=== PATIENT | female | born 1940 | race Caucasian/White ===

== ENCOUNTER → 2017-02-03 | Outpatient (CLI) | payer MEDICARE, BC | LOC: MC.RAD 15:59 | DX: Z12.31 Encounter for screening mammogram for malignant neoplasm of breast (principal) ==

== ENCOUNTER → 2017-09-16 | Outpatient (CLI) | payer MEDICARE, BC | LOC: COL.RAD 07:04 | DX: K80.20 Calculus of gallbladder without cholecystitis without obstruction (principal); K76.89 Other specified diseases of liver ==

== ENCOUNTER → 2018-03-05 | Outpatient (CLI) | payer MEDICARE, BC | LOC: MC.RAD 08:40 | DX: Z12.31 Encounter for screening mammogram for malignant neoplasm of breast (principal) ==

== ENCOUNTER → 2019-03-30 | Outpatient (CLI) | payer MEDICARE, BC | LOC: MC.RAD 11:13 | DX: Z12.31 Encounter for screening mammogram for malignant neoplasm of breast (principal) ==

== ENCOUNTER 2019-12-07 13:59 | Inpatient (IN) | payer MEDICARE, BC ==
[~2019-12-07] VITALS: Ht 154.9 cm; Wt 75.5 kg
[2019-12-07] MEDS ORDERED: ROXICODONE 55 MG/TAB PO (15:18)
[2019-12-07] MEDS ORDERED: ULTRAM 50MG TAB50 MG (15:18)
[2019-12-07] MEDS ORDERED: NATURAL IRON65 MG (15:19)
[2019-12-07] MEDS ORDERED: SYNTHROID 0.0.025 MG PO (15:19)
[2019-12-07] MEDS ORDERED: PRINZIDE 12.5 M1 TAB PO (15:19)
[2019-12-07] MEDS ORDERED: TYLENOL 500MG500 MG PO (15:20)
[2019-12-07] MEDS ORDERED: ASPIRIN 32325 MG/TAB PO (15:20)
[2019-12-07 15:24] LABS: BASO % 0.1 % (0.0-2.0); EOS % 0.3 % (0-4.0); GRAN # 12.9 (1.4-6.5); LYMPH # 1.4 (1.2-3.4); LYMPH % 8.8 % (20.0-51.0); MEAN CELL VOLUME 98 fl (80.0-100.0); MEAN CORPUSCULAR HGB CONC 34 g/dl (33.0-37.0); MEAN PLATELET VOLUME 9.5 fl (7.4-10.4); MONO # 1.2 (0.1-0.6); MONO % 7.5 % (1.7-9.3); PLATELET COUNT 285 K/mm3 (130-400); RED BLOOD COUNT 1.87 M/mm3 (4.10-5.30); REDCELL DISTRIBUTION WIDTH-CV 13.9 % (11.5-14.5)
[2019-12-07 15:28] LABS: INR 1.1 (0.8-3.0)
[2019-12-07 15:29] LABS: HEMATOCRIT 18.4 % (37.0-47.0); HEMOGLOBIN 6.3 g/dl (12.5-16.0); MEAN CORPUSCULAR HEMOGLOBIN 34 pg (27.0-31.0)
[2019-12-07 15:30] LABS: PARTIAL THROMBOPLASTIN TIME 24.9 SECONDS (26.0-37.0)
[2019-12-07 15:38] LABS: ALANINE AMINOTRANSFERASE 17 U/L (4-34); ALBUMIN 3.2 gm/dL (3.5-5.0); ALKALINE PHOSPHATASE 54 U/L (50-136); ANION GAP 8 mmol/L (7-16); AST,SGOT 26 U/L (15-37); BILIRUBIN,TOTAL 1.3 mg/dL (0.0-1.0); BLOOD UREA NITROGEN 37 mg/dL (7-17); C-REACTIVE PROTEIN 6.9 mg/dL (0.0-0.9); CALCIUM 8.1 mg/dL (8.4-10.2); CARBON DIOXIDE 24 mmol/L (22-30); CHLORIDE 95 mmol/L (98-107); CREATININE, serum 0.67 (0.52-1.25); GLUCOSE 120 mg/dL (74-106); SODIUM 127 mmol/L (137-145); TOTAL PROTEIN 5.8 gm/dL (6.4-8.2)
[2019-12-07 15:44] LABS: COLLECTION METHOD CLEAN CATCH
[2019-12-07 15:48] LABS: TROPONIN-I < 0.012 ng/mL (0.000-0.035)
[2019-12-07 16:09] LABS: PH 5 (5-8); SQUAMOUS EPITHELIAL 0-2 /hpf; URINE APPEARANCE Clear; URINE BACTERIA None Seen /hpf; URINE BILIRUBIN Negative (NEGATIVE); URINE BLOOD Negative (NEGATIVE); URINE COLOR Yellow; URINE GLUCOSE Negative (NEGATIVE); URINE KETONE Trace (NEGATIVE); URINE LEUKOCYTE ESTERASE 1+ (NEGATIVE); URINE NITRATE Negative (NEGATIVE); URINE PROTEIN(semi-quant) Negative (NEGATIVE); URINE RBC 0-2 /hpf; URINE UROBILINOGEN Negative (NEGATIVE)
[2019-12-07] MEDS ORDERED: NAPROSYN500 MG PO (16:09)
[2019-12-07 16:45] LABS: IRON,SERUM 90 ug/dL (35-150)
[2019-12-07 16:54] LABS: TOTAL IRON BINDING CAPACITY 239 ug/dL (265-497)
[2019-12-07 17:40] VITALS: BP 102/39; PULSE 106; TEMP 98.2
[2019-12-07 18:27] VITALS: BP 116/33; PULSE 100; TEMP 98.7
[2019-12-07 18:46] VITALS: BP 112/30; PULSE 98; TEMP 98.1
[2019-12-07 19:06] VITALS: BP 121/48; PULSE 99; TEMP 98.6
[2019-12-07 21:21] VITALS: BP 129/38; PULSE 102
[2019-12-07 21:53] LABS: HEMATOCRIT 20.2 % (37.0-47.0); HEMOGLOBIN 6.8 g/dl (12.5-16.0)
[2019-12-07 23:20] VITALS: BP 126/29; PULSE 91; TEMP 98.1
[2019-12-08] VITALS (19 sets, daily range): BP systolic 97–130; BP diastolic 25–49; PULSE 80–99; TEMP 97.7–98.7
[2019-12-08 03:40] LABS: BASO % 0.3 % (0.0-2.0); EOS # 0.3 (0.0-0.7); EOS % 2.4 % (0-4.0); GRAN # 8.4 (1.4-6.5); GRAN % 70.8 % (42.2-75.2); LYMPH # 1.5 (1.2-3.4); MEAN CORPUSCULAR HGB CONC 34 g/dl (33.0-37.0); MEAN PLATELET VOLUME 9.3 fl (7.4-10.4); MONO # 1.5 (0.1-0.6); MONO % 12.2 % (1.7-9.3); PLATELET COUNT 233 K/mm3 (130-400); RED BLOOD COUNT 2.58 M/mm3 (4.10-5.30); REDCELL DISTRIBUTION WIDTH-CV 17.7 % (11.5-14.5)
[2019-12-08 03:41] LABS: HEMATOCRIT 23.5 % (37.0-47.0); HEMOGLOBIN 7.9 g/dl (12.5-16.0); MEAN CELL VOLUME 91 fl (80.0-100.0); MEAN CORPUSCULAR HEMOGLOBIN 31 pg (27.0-31.0)
[2019-12-08 03:49] LABS: CREATININE, serum 0.52 (0.52-1.25); POTASSIUM 3.8 mmol/L (3.4-5.0)
[2019-12-08 17:33] LABS: FOLATE (FOLIC ACID) 14.4 ng/mL (7.0-31.4)
[2019-12-09] VITALS: BP 119/49; PULSE 93; TEMP 98.1
[2019-12-09 04:11] VITALS: BP 116/50; PULSE 93; TEMP 98.3
[2019-12-09 07:26] LABS: BASO % 0.3 % (0.0-2.0); EOS # 0.4 (0.0-0.7); EOS % 2.7 % (0-4.0); GRAN # 9.5 (1.4-6.5); GRAN % 72.3 % (42.2-75.2); LYMPH # 1.7 (1.2-3.4); LYMPH % 13.1 % (20.0-51.0); MEAN CELL VOLUME 93 fl (80.0-100.0); MEAN CORPUSCULAR HGB CONC 33 g/dl (33.0-37.0); MEAN PLATELET VOLUME 9.3 fl (7.4-10.4); MONO # 1.4 (0.1-0.6); MONO % 10.2 % (1.7-9.3); PLATELET COUNT 303 K/mm3 (130-400); RED BLOOD COUNT 2.75 M/mm3 (4.10-5.30); REDCELL DISTRIBUTION WIDTH-CV 19.1 % (11.5-14.5)
[2019-12-09 07:28] LABS: HEMATOCRIT 25.6 % (37.0-47.0); HEMOGLOBIN 8.5 g/dl (12.5-16.0); MEAN CORPUSCULAR HEMOGLOBIN 31 pg (27.0-31.0)
[2019-12-09 08:02] VITALS: BP 130/47; PULSE 100; TEMP 97.9
[2019-12-09] MEDS ORDERED: NATURAL IRON65 MG PO (08:32)
[2019-12-09] MEDS ORDERED: PROTONIX 40MG T40 MG PO (08:34)
== END 2019-12-09 10:30 | disposition home or self-care (01) | DRG 378 ==
LOC: COL.ER 13:59 → SURG 16:02
PROVIDERS: Emergency Medicine; Internal Medicine; Internal Medicine Gastroenterology; Physician Assistant; ADMIT Hospitalist
PROC: 0DB68ZX Excision of Stomach, Via Natural or Artificial Opening Endoscopic, Diagnostic (ICD-10-PCS; principal; 2019-12-08 07:30)
DX: K25.4 Chronic or unspecified gastric ulcer with hemorrhage (principal); D62 Acute posthemorrhagic anemia; E87.1 Hypo-osmolality and hyponatremia; E03.9 Hypothyroidism, unspecified; I10 Essential (primary) hypertension; D72.829 Elevated white blood cell count, unspecified; E78.5 Hyperlipidemia, unspecified; K59.00 Constipation, unspecified; Z96.652 Presence of left artificial knee joint
CPT/HCPCS: 99222-AI; 99232-AI; 99239; C9113; J0290; J2704; J7030; P9016

== ENCOUNTER → 2020-01-06 | Outpatient (CLI) | payer MEDICARE, BC ==
[~2020-01-06] MED LIST: ASPIRIN 32325 MG/TAB PO; NAPROSYN500 MG PO; NATURAL IRON65 MG; NATURAL IRON65 MG PO; PRINZIDE 12.5 M1 TAB PO; PROTONIX 40MG T40 MG PO; ROXICODONE 55 MG/TAB PO; SYNTHROID 0.0.025 MG PO; TYLENOL 500MG500 MG PO; ULTRAM 50MG TAB50 MG
== END ==
LOC: COL.RAD 13:52
DX: R06.00 Dyspnea, unspecified (principal)
CPT/HCPCS: Q9967

== ENCOUNTER → 2020-02-01 | Outpatient (CLI) | payer MEDICARE, BC | LOC: COL.VAS 12:04 | DX: R06.02 Shortness of breath (principal) ==

== ENCOUNTER → 2020-04-03 | Outpatient (CLI) | payer MEDICARE, BC | LOC: MC.RAD 14:15 | DX: Z12.31 Encounter for screening mammogram for malignant neoplasm of breast (principal) ==

== ENCOUNTER → 2021-04-16 | Outpatient (CLI) | payer MEDICARE, BC | LOC: COL.RAD 08:12 | DX: E78.5 Hyperlipidemia, unspecified (principal); K80.20 Calculus of gallbladder without cholecystitis without obstruction; K57.30 Diverticulosis of large intestine without perforation or abscess without bleeding; K44.9 Diaphragmatic hernia without obstruction or gangrene; K31.89 Other diseases of stomach and duodenum; K83.5 Biliary cyst | CPT/HCPCS: Q9967 ==

== ENCOUNTER → 2021-04-30 | Outpatient (CLI) | payer MEDICARE, BC | LOC: COL.RAD 08:15 | DX: K76.89 Other specified diseases of liver (principal); K80.20 Calculus of gallbladder without cholecystitis without obstruction ==

== ENCOUNTER → 2021-05-31 | Outpatient (CLI) | payer MEDICARE, BC | LOC: MC.RAD 11:26 | DX: Z12.31 Encounter for screening mammogram for malignant neoplasm of breast (principal) ==

== ENCOUNTER 2022-03-07 15:51 | Emergency (ER) | payer MEDICARE, BC ==
[~2022-03-07] VITALS: Ht 157.5 cm; Wt 65.0 kg
[2022-03-08 03:03] VITALS: TEMP 98.2
[2022-03-08 05:14] LABS: HEMOGLOBIN 11.2 g/dl (12.5-16.0); MEAN CELL VOLUME 97 fl (80.0-100.0); MEAN CORPUSCULAR HEMOGLOBIN 33 pg (27-31); MEAN CORPUSCULAR HGB CONC 34 g/dl (33.0-37.0); PLATELET COUNT 227 K/mm3 (130-400); RED BLOOD COUNT 3.39 M/mm3 (4.10-5.30); REDCELL DISTRIBUTION WIDTH-CV 13.2 % (11.5-14.5)
[2022-03-08 05:17] LABS: HEMATOCRIT 32.9 % (37.0-47.0)
[2022-03-08 05:32] LABS: ALBUMIN 3.3 gm/dL (3.4-4.8); BILIRUBIN,TOTAL 1.2 mg/dL (0.2-1.2); CALCIUM 8.7 mg/dL (8.4-10.2); CREATININE, serum 0.63 mg/dL (0.57-1.11); POTASSIUM 3.8 mmol/L (3.5-4.5)
--- NOTE | 2022-03-08 09:44 | NUR ---
SW met with patient to talk about possible placement. Prior to meeting with patient, SW contacted the local nursing homes for availability. [facility] does not have a LTC bed or a SNF bed open at this time. [facility] does not have a LTC bed but does have a SNF bed. If the patient was to be admitted from the ER, she would be private pay at $296 a day and would need to pay $8900 up front for the first 30 days. Phone call made to [facility]. They would not be able to accept this patient today due to staffing and already having 3 slated admissions. The earliest they would be able to accept would be early next week as they do not do weekend admissions and again the patient would be private pay if sent home and surgery was done as an out patient. Patient lives at home alone here in [place]. She is independent will all of her ADL's/IADL's and will utilize a cane PRN when she feels "unsteady". She has no home oxygen needs. PCP is Dr. Gutiérrez and she utilizes [facility] for prescriptions. Patient states that she does have a DPO[facility]-HC established listing her two daughters; Bisi and Aletha. Per ortho recommendations the patient is non weight bearing. PT/OT worked with patient in the ER and recommends rehab. SW spoke with patient and her daughter Bisi and both feel like the patient would not be safe in the home setting. Patients RN notified. Request made for hospitalist team to re-eval admission for the patient.
[2022-03-08] MEDS ORDERED: TYLENOL 325MG325 MG PO (13:54)
[2022-03-08] MEDS ORDERED: PRINZIDE 12.5 M1 TAB PO (13:59)
--- NOTE | 2022-03-08 14:28 | NUR ---
This SW and meet with the patient at bedside to discuss POC. Patient on the phone with her daughter Bisi at this time. Patient is agreeable to going to [facility] at this time as private pay. Niko with [facility] informed on the above. Niko arrives to the unit to meet with the patient who is still agreeable with admission today. Transportation arranged for 1430 greens picker. Patient RN notified.
[2022-03-08 14:39] VITALS: BP 116/76; PULSE 92
== END 2022-03-08 15:00 | disposition other institution (70) ==
LOC: COL.ER 15:51
PROVIDERS: Physician Assistant
DX: S82.141A Displaced bicondylar fracture of right tibia, initial encounter for closed fracture (principal); S82.831A Other fracture of upper and lower end of right fibula, initial encounter for closed fracture; Z96.652 Presence of left artificial knee joint; W11.XXXA Fall on and from ladder, initial encounter
CPT/HCPCS: L1846